=== PATIENT | male | born 1985 | race Caucasian/White ===

== ENCOUNTER 2021-12-29 13:48 | Outpatient (CLI) | payer BC, SELFPAY ==
--- NOTE | ~2021-12-29 | MR_ITS ---
EXAMINATION: MR knee LT wo con DATE: 12/29/2021 14:22 INDICATION: Chronic left knee pain TECHNIQUE: Magnetic resonance imaging (MRI) of the left knee was performed without intravenous contra st. Sequences included coronal PD-weighted FSE, coronal PD-weighted FS FSE, sagittal T2-weighted FSE , sagittal PD-weighted FS FSE and axial PD weighted fat saturated FSE. COMPARISON: None. FINDINGS: Medial compartment: Medial meniscus is normal. Articular cartilage is normal. Lateral compartment: Lateral meniscus is normal. Articular cartilage is normal. Patellofemoral compartment: Stellate full/near full-thickness chondral fissures along the central apical ridge of the patella wit h additional partial thickness chondral fissure extending horizontally across the lateral facet. Smal l region of mild partial-thickness chondral fissuring at the inferior aspect of the medial trochlea. No degenerative subchondral changes. Ligaments and tendons: Anterior and posterior cruciate ligaments are normal. The medial collateral ligament and fibular arnaud ateral ligament complex are normal. The extensor mechanism is normal. The visualized medial and later al hamstring tendons as well as the iliotibial band are normal. Fluid: Physiologic amount of fluid in the joint space. No loose osteochondral bodies identified. Moderate-si zed Garcia's cyst measuring 4.2 x 1.3 x 1.4 cm. Osseous/other: Small low signal intensity bone islands at the medial patellar facet and medial tibial plateau. Other richards normal bone marrow signal. No fracture or pathologic marrow replacing process. IMPRESSION: 1. Full/near full-thickness chondral fissuring at the patella. 2. Moderate-sized Garcia's cyst. Reviewed, dictated and finalized at location A.
== END 2021-12-29 13:49 ==
LOC: MICIMG 13:50
PROVIDERS: PCP Family Medicine; Visit Provider Orthopaedic Surgery
DX: M71.22 Synovial cyst of popliteal space [Baker], left knee (principal)
CPT/HCPCS: 73721